=== PATIENT | male | born 1945 | race Caucasian/White ===

== ENCOUNTER 2018-07-14 03:58 | Inpatient (IN) | payer OTHER ==
[~2018-07-14] VITALS: Ht 172.7 cm; Wt 95.3 kg
[~2018-07-14 03:58] MED LIST: ASPIRIN EC81 M1 PO; ATORVASTATIN CA40 M1 PO; FERREX 150150 M1 PO; QUINAPRIL HCL20 M1 PO; TAMSULOSIN HCL0.4 M1
--- NOTE | 2018-07-14 09:57 | Operative Report ---
Operative/Inv Procedure Report Surgery Date: 07/14/18 Name of Procedure: Left total knee arthroplasty Pre-Operative Diagnosis: Left knee primary osteoarthritis Post-Operative Diagnosis: Same Estimated Blood Loss: less than 50ml Surgeon/Production Control Expediter: Ethel GLOVER,Alexei Burroughs Anesthesia: block Implants: Syeda triathlon total knee system-size 5 femur, size 5 tibia, 9 mm cruciate retaining polyethylene, 31 patella Drains: None Specimens: Femoral, tibial, patellar bone, remnants of medial lateral meniscal tissues Microbiology: Urine Tourniquet: 59 minutes Complications: None Condition: Stable Operative Indication: Patient is a 73-year-old man with gradually worsening knee symptoms grade he was diagnosed with end-stage osteoarthritis. Conservative measures did not provide any significant long-term relief. Due to ongoing symptoms that interfere with normal activities of daily living and failure of conservative measures, he wished to proceed with total knee arthroplasty. Risks benefits and expectations of the surgical procedure were discussed which included but were not limited to persistent knee pain, need for subsequent surgery, infection, DVT, injury to blood vessel or nerve and anesthesia risks. Operative/Procedure Note Note: Patient was brought to the operating room and transferred to the operating room table. Once under appropriate anesthesia the left lower extremity was prepped and draped in standard fashion. Preoperative IV antibiotics were given prophylactically. Standard anterior incision was made after the left lower extremity was elevated exsanguinated and tourniquet was inflated to 300 mm of pressure. Standard exposure was taken down to the medial retinaculum. A medial retinacular approach of the minimal extension to the quadricep tendon was used to enter the knee joint. Osteophytes were excised from all 3 compartments. Remnants of the medial and lateral meniscal tissues were excised. Portion of the fat pad was excised for proper visualization. Retractors were placed and the knee was flexed. Remnants of the ACL were excised.. Used a drill to enter the intramedullary canal for the intramedullary guide for the distal femoral cut. The cutting block was pinned in place for a 6 valgus cut. The appropriate thickness was removed and then the femur was sized to a size 5. Size 5 cuts were made with the standard block. Soft tissues were protected throughout the procedure with retractors. I then turned my attention to the tibia. I placed the external tibial alignment guide in place and pinned the cutting block for a neutral cut from medial to lateral and reproducing patient's posterior slope based on preoperative templating and intraoperative findings. Again soft tissues were protected medially laterally and posteriorly. The PCL was recessed prior to this cut. Soft tissue balancing was completed. I then did a trial reduction with a size 5 tibia size 5 femur and a 9 mm polyethylene. Soft tissues were balanced. Full extension. Excellent flexion stability and full flexion to gravity was confirmed. I then turned my attention to the patella. The patella was measured and the appropriate thickness was removed and then replaced with a size 31 patella. 3 lug holes were drilled and the knee was taken through range of motion with the trial polyethylene of the patellar component. Excellent patellofemoral tracking. I then removed all trial components. Was done after marking my rotation and drilling the 2 lug holes for the distal femur. I finished preparation of the tibia with the standard tibial punch for the size 5 tibia. Cement was being mixed on the back table as the knee surfaces were copiously irrigated. I also used the anterior chamfer bone to use as a plug for the distal femur to minimize postoperative hemarthrosis and postoperative knee swelling. Once the cement was ready was applied to the dry clean bony surfaces of the proximal tibia and the definitive size 5 tibial component was impacted in place. Excess cement was removed with curette. Cement was applied to dry clean bony surfaces of the distal femur and the definitive size 5 femoral component was impacted in place. The cruciate retaining trial polyethylene was inserted and the knee was taken out to full extension. Cement was applied to the dry clean bony surfaces of the patella. The size 31 patella was impacted in place and excess cement was removed with knife. Once the cement had hardened into the knee through range of motion. Small pieces of excess cement removed. I was satisfied with a 9 mm cruciate retaining polyethylene full extension excellent mid flexion stability and full flexion to gravity. Trial polyethylene was removed. Copious irrigation the tibial tray followed. The definitive size 9 mm cruciate retaining polyethylene was impacted in place for the size 5 tibia. The locking mechanism was confirmed. Again stability was confirmed as well as well as motion. Tourniquet was deflated. Hemostasis was obtained. After copious irrigation and copious irrigation followed every level of closure, the closure began with the retinacular and minimal extension of the quadricep tendon using #1 Vicryl suture. Subtenons tissue was closed with 2-0 Vicryl in 2 layers and skin was closed with a running 3-0 Vicryl suture with the knee in flexion. Appropriate dressings were applied and patient was awakened and taken to recovery room in good condition. No intraoperative complications. Blood loss was minimal Discharge Disposition: PACU
[2018-07-14 11:00] VITALS: BP 132/72
--- NOTE | 2018-07-14 11:50 | PN- Orthopedic ---
Subjective Subjective: 73 y/o male S/P left TKA doing well without complaints, tolerating POs Family present, all questions answered Objective Vital Signs and I&Os VSS afebrile Physical Exam: Patient is alert and oriented, comfortable VSS afebrile chest-CTA symmetric Heart -RRR without MRG Abd -soft without distention left - knee dressings CDI without drainage, calves soft feet warm, full sensation has returned Current Medications: Current Medications Sig/Elisa Start time Last Medication Dose Route Stop Time Status Admin Acetaminophen 650 MG ONCE 07/14 DC PO 07/14 2359 Apixaban 2.5 MG BID 07/15 900 AC PO Atorvastatin Calcium 40 MG 1700 07/14 170 AC PO Celecoxib 400 MG DAILY 07/15 900 AC PO Celecoxib 400 MG ONCE 07/14 DC PO 07/14 2359 Dexamethasone 20 MG ONCE 07/14 DC IV 07/14 235 Dextrose/Lactated 1,000 ML Q13H 07/14 111 AC Ringer's IV Docusate Sodium 100 MG BID PRN 07/14 800 AC PO Fentanyl Citrate 0 .STK-MED ONE 07/14 727 DC .ROUTE Gabapentin 300 MG ONCE 07/14 DC PO 07/14 235 Lisinopril 10 MG DAILY 07/14 900 AC PO Midazolam HCl 0 .STK-MED ONE 07/14 727 DC .ROUTE Midazolam HCl 0 .STK-MED ONE 07/14 726 DC .ROUTE Morphine Sulfate 2 MG Q3P PRN 07/14 111 AC IV Ondansetron HCl 4 MG Q6P PRN 07/14 111 AC IV Oxycodone HCl 10 MG ONCE 07/14 DC PO 07/14 2359 Oxycodone/ 1 TAB Q4P PRN 07/14 111 AC Acetaminophen PO Oxycodone/ 2 TAB Q4P PRN 07/14 111 AC Acetaminophen PO Polyethylene Glycol 17 GM DAILY NEEDED PRN 07/14 800 AC PO Scopolamine HBr 1 PAT ONCE 07/14 DC TOP 07/14 2359 Senna/Docusate Sodium 2 TAB AT BEDTIME NEED.. 07/14 111 AC PO Tamsulosin HCl 0.4 MG DAILY 07/15 900 AC PO Tranexamic Acid 0 .STK-MED ONE 07/14 918 DC IV Vancomycin HCl 1,500 MG 1900 07/14 1900 AC Sodium Chloride 250 ML IV 07/14 2030 Vancomycin HCl 1,500 MG ONCE 07/14 0000 CAN Sodium Chloride 500 ML IV 07/14 2359 Vancomycin HCl 1,500 MG ONCE 07/14 0000 DC Sodium Chloride 250 ML IV 07/14 2359 Assessment/Plan Assessment/Plan 73 y/o male postop Left TKA prior history of polio -rgiht upper extremity atrophy with intermittent bilateral lower extremity weakness at baseline start PT -He will not be able to ambulate with a walker, suggest cane He will need 3 day stay with rehab at ([facility]) DVT poph -eliquis advance diet as tolarated Core Measures Venous Thromboembolism VTE Risk Factors Surgery No Mechanical VTE Prophylaxis d/t N/A MechProphylax Ordered No VTE Pharm Prophylaxis d/t NA PharmProphylax ordered
--- NOTE | 2018-07-14 11:51 | Admission Core Measures ---
Acute Coronary Syndrome (CM) ACS Core Measures Acute Coronary Syndrome Diagnosis No Congestive Heart Failure (NEW) CHF Core Measures Congestive Heart Failure Diagnosis No Cerebrovascular Accident CVA Core Measures CVA/TIA Diagnosis No Venous Thromboembolism VTE Core Adrianna (View Protocol) VTE Risk Factors Surgery No Mechanical VTE Prophylaxis d/t N/A MechProphylax Ordered No VTE Pharm Prophylaxis d/t NA PharmProphylax ordered Problem List As ranked by this Provider includes Assessment & Plan 1. Primary osteoarthritis of left knee HOME MEDS Home Med List Apixaban (Eliquis) 2.5 MG TABLET 2.5 MG PO BID DVT prophalaxis Atorvastatin Calcium 40 MG TABLET 1 TAB PO DAILY cholesterol (Reported) Docusate Sodium (Colace) 100 MG CAPSULE 1 CAP PO DAILY PRN CONSTIPATION Iron Polysaccharide Complex (Ferrex 150) 150 MG IRON CAPSULE 1 CAP PO DAILY supplement (Reported) Oxycodone HCl/Acetaminophen (Percocet 5-325 MG Tablet) 5 MG-325 MG TABLET 1-2 TAB PO Q4-6 PRN PRN PAIN Quinapril HCl 20 MG TABLET 1 TAB PO DAILY HTN (Reported) Discontinued Medications Aspirin (Ecotrin*) 81 MG TABLET.DR 1 TAB PO DAILY cardiac (Reported) Discontinued reason: Changed to different med
--- NOTE | 2018-07-14 11:57 | Surgical Discharge Summary ---
Visit Information Visit Dates Admission Date: 07/14/18 Discharge Date: 07/16/18 History of Present Illness Chief Complaint: left knee pain, osteoarthritis Medical History Isolation History: Standard Surgical History Pertinent Surgical History: knee replacement (L) Review of Systems: Refer to H&P Hospital Course Course Attending Physician: Ethel GLOVER,Manjeet Primary Care Physician: Олег Owen MD Hospital Course: 73 y/o male underwent a left TKA on 07/14/2018. He tolarated the procedure well and was transferred to the surgical floor to begin his postoperative course. He was started on eliquis for DVT prophalaxis. He was seen by PT for WBAT to return to baseline. Throughout his hospital stay his VSS and he remained afebrile. On POD 2 he was discharged to ECF for continuation of rehab Allergies: Coded Allergies: atenolol (From TENORMIN) (Severe, RASH, SWELLING, NAUSEA, SOB 07/14/18) Significant Procedures: TKA Disposition Summary Disposition Principal Diagnosis: left knee osteoarthritis Additional Diagnosis: none Discharge Disposition: SNF Discharge Instructions General Discharge Information Code Status: Full Code Patient's Diet: regular Patient's Activity: return to baseline Follow-Up Instructions/Appts: 2 weeks Medications at Discharge Discharge Medications: Stop taking the following medications: Aspirin (Ecotrin*) 81 MG TABLET.DR ORAL DAILY Continue taking these medications: Atorvastatin Calcium (Atorvastatin Calcium) 40 MG TABLET 1 Tablet ORAL DAILY Comments: Last Taken:07/15/18 Time:5:44 PM Iron Polysaccharide Complex (Ferrex 150) 150 MG IRON CAPSULE 1 Capsule ORAL DAILY Comments: NOT GIVEN IN HOSPITAL Quinapril HCl (Quinapril HCl) 20 MG TABLET 1 Tablet ORAL DAILY Comments: Last Taken:07/16/18- LISINOPRIL GIVEN IN HOSP Time:8:36 AM Tamsulosin HCl (Tamsulosin HCl) 0.4 MG CAP.ER.24H Comments: Last Taken:07/16/18 Time:8:36 AM Start taking the following new medications: Apixaban (Eliquis) 2.5 MG TABLET 2.5 Milligram ORAL TWICE DAILY Qty = 60 No Refills Comments: Last Taken:07/16/18 Time:8:36 AM Oxycodone HCl/Acetaminophen (Percocet 5-325 MG Tablet) 5 MG-325 MG TABLET 1-2 Tablet ORAL EVERY 4-6 HOURS NEEDED as needed for PAIN Qty = 30 No Refills Comments: Last Taken:07/16/18 Time:1:15 PM Docusate Sodium (Colace) 100 MG CAPSULE 1 Capsule ORAL DAILY as needed for CONSTIPATION Qty = 7 No Refills Comments: Last Taken:07/16/18 Time:8:36 AM Copies To: Manjeet Davenport MD
[2018-07-14] MEDS ORDERED: ELIQUIS2.5 M1 PO (11:58)
--- NOTE | 2018-07-14 12:05 | Patient Discharge Instructions ---
Discharge Instructions General Discharge Information You were seen/treated for: left knee osteoarthritis You had these procedures: left total knee replacement Watch for these problems: fevers, chills, wound drainage, weakness Call Surgeon to remove: [place] Do not soak the wound: No Daily wet to dry dressings: No No bath, but you may shower: No Other wound care: keep incision clean and dry Special Instructions: dry dressing changes daily Diet Continue normal diet: Yes Activity Full Activity/No Limits: No Activity Self Limited: Yes Acute Coronary Syndrome Inclusion Criteria At DC or during hospital stay patient has or had the following: ACS DIAGNOSIS No Discharge Core Measures Meds if any: Prescribed or Continued at Discharge Meds if any: NOT Prescribed or Continued at Discharge Congestive Heart Failure Inclusion Criteria At DC or during hospital stay patient has or had the following: CHF DIAGNOSIS No Discharge Core Measures Meds if any: Prescribed or Continued at Discharge Meds if any: NOT Prescribed or Continued at Discharge Cerebrovascular accident Inclusion Criteria At DC or during hospital stay patient has or had the following: CVA/TIA Diagnosis No Discharge Core Measures Meds if any: Prescribed or Continued at Discharge Meds if any: NOT Prescribed or Continued at Discharge Venous thromboembolism Inclusion Criteria VTE Diagnosis No VTE Type NONE VTE Confirmed by (Test) NONE Discharge Core Measures - Per Current guidelines, there needs to be overlap - treatment for the first 5 days of Warfarin therapy. - If discharged on Warfarin prior to 5 days of - overlap therapy, the patient will need to be - assessed for post discharge needs including - *Post discharge parental anticoagulation - *Warfarin and/or parental anticoagulation education - *Follow up date to check INR post discharge At least 5 days overlap therapy as Inpatient No Meds if any: Prescribed or Continued at Discharge Note: Overlap Therapy is Warfarin and Anticoagulant Meds if any: NOT Prescribed or Continued at Discharge
[2018-07-14 15:14] VITALS: BP 152/86
[2018-07-14 15:54] VITALS: BP 137/75
[2018-07-14 17:37] VITALS: BP 127/64
[2018-07-14 19:20] VITALS: BP 132/64
[2018-07-14 21:02] VITALS: BP 126/68
[2018-07-15 00:59] VITALS: BP 126/85
[2018-07-15 06:43] VITALS: BP 127/79
[2018-07-15 08:21] LABS: ABSOLUTE BASOPHIL COUNT 0 /CUMM (0.0-0.2); ABSOLUTE EOSINOPHIL COUNT 0 /CUMM (0.0-0.7); ABSOLUTE GRANULOCYTE CT 11.3 /CUMM (1.4-6.5); ABSOLUTE LYMPH COUNT 0.9 /CUMM (1.2-3.4); ABSOLUTE MONOCYTE COUNT 0.9 /CUMM (0.10-0.60); BASOPHIL % 0 % (0.0-2.0); EOSINOPHIL % 0 % (0-5); GRANULOCYTE % 86.3 % (42.2-75.2); HEMATOCRIT 35.2 % (42-52); MEAN CORPUSCULAR HGB 32.8 PG (27.0-31.0); MEAN CORPUSCULAR HGB CONC 34.2 G/DL (33.0-37.0); MEAN CORPUSCULAR VOLUME 96.1 FL (80.0-94.0); MEAN PLATELET VOLUME 8.1 FL (7.4-10.4); PLATELET COUNT 206 /CUMM (130-400); RBC DISTRIBUTION WIDTH 12.4 % (11.5-14.5); RED BLOOD CELL CT 3.67 /CUMM (4.70-6.10)
--- NOTE | 2018-07-15 09:07 | PN- Orthopedic ---
See Addendum Subjective Subjective: Reports pain controlled. Out of bed to chair. No dizziness. No shortness of breath. No chest pains. Anticipates rehab placement in a few days. Objective Vital Signs and I&Os Vital Signs Date Time Temp Pulse Resp B/P B/P Pulse O2 O2 Flow FiO2 Mean Ox Delivery Rate 07/15 829 57 129/66 07/15 0828 57 129/66 07/15 0643 98.1 52 20 127/79 97 Room Air 07/15 0059 98.1 67 18 126/85 97 CPAP 07/14 2102 98.1 65 20 126/68 96 Room Air 07/14 1920 98.0 62 18 132/64 96 Room Air 07/14 1737 98.7 59 20 127/64 96 Room Air 07/14 1554 97.7 95 20 137/75 93 Room Air 07/14 1514 98.3 91 20 152/86 95 Room Air 07/14 1100 97.8 58 18 132/72 97 Room Air Intake & Output 07/15 1600 07/15 0000 07/14 1600 07/14 0807/14 0000 Intake Total 548 692 0458 Output Total 700 700 Balance 100 -280 1020 Intake, IV 600 300 300 Intake, Oral 200 120 720 Number 0 Bowel Movements Output, Urine 700 700 Patient 210 lb Weight Weight Reported by Patient Measurement Method Physical Exam: General - alert & oriented x 3. out of bed to chair. no acute distress. Lungs - clear bilaterally. no w/r/r. Cardiac - s1s2. reg. Abdomen - soft. nontender. Extremities - warm bilaterally. left knee dressing c/d/i. ice pack in place over knee. calves soft and nontender b/l. nvi. Current Medications: Current Medications Sig/Elisa Start time Last Medication Dose Route Stop Time Status Admin Acetaminophen 650 MG ONCE 07/14 0000 DC PO 07/14 2359 Apixaban 2.5 MG BID 07/15 900 AC 07/15 PO 08 Atorvastatin Calcium 40 MG 1700 07/14 1700 AC 07/14 PO 190 Celecoxib 400 MG DAILY 07/15 900 AC 07/15 PO 0829 Celecoxib 400 MG ONCE 07/14 0000 DC PO 07/14 235 Dexamethasone 20 MG ONCE 07/14 0000 DC IV 07/14 235 Dextrose/Lactated 1,000 ML Q13H 07/14 1115 DC 07/15 Ringer's IV 0034 Docusate Sodium 100 MG BID 07/15 2100 AC PO Docusate Sodium 100 MG BID PRN 07/14 08 AC PO 07/15 2059 Gabapentin 300 MG ONCE 07/14 DC PO 07/14 235 Influenza Virus 0 .STK-MED ONE 07/14 1953 DC Vaccine IM Influenza Virus 0.5 ML ONCE ONE 07/14 134 DC 07/14 Vaccine IM 07/14 Lisinopril 10 MG DAILY 07/14 09 AC 07/15 PO 0829 Morphine Sulfate 2 MG Q3P PRN 07/14 111 AC IV Ondansetron HCl 4 MG Q6P PRN 07/14 111 AC IV Oxycodone HCl 10 MG ONCE 07/14 DC PO 07/14 235 Oxycodone/ 1 TAB Q4P PRN 07/14 111 AC Acetaminophen PO Oxycodone/ 2 TAB Q4P PRN 07/14 111 AC 07/15 Acetaminophen PO 0530 Polyethylene Glycol 17 GM DAILY NEEDED PRN 07/14 08 AC PO Scopolamine HBr 1 PAT ONCE 07/14 DC TOP 07/14 235 Senna/Docusate Sodium 2 TAB AT BEDTIME NEED.. 07/14 111 AC PO Tamsulosin HCl 0.4 MG DAILY 07/15 900 AC 07/15 PO 0828 Vancomycin HCl 1,500 MG 1900 07/14 190 DC 07/14 Sodium Chloride 250 ML IV 07/14 2030 190 Vancomycin HCl 1,500 MG ONCE 07/14 DC Sodium Chloride 250 ML IV 07/14 2359 Results Last 48 Hours of Labs: Laboratory Tests 07/15 723 Chemistry Sodium (137 - 145 mmol/L) 138 Potassium (3.5 - 5.1 mmol/L) 4.5 Chloride (98 - 107 mmol/L) 107 Carbon Dioxide (22 - 30 mmol/L) 22 Anion Gap (5 - 16) 9 BUN (9 - 20 mg/dL) 13 Creatinine (0.7 - 1.2 mg/dL) 0.8 Estimated GFR (>60 ml/min) > 60 BUN/Creatinine Ratio (7 - 25 %) 16.3 Hematology CBC w Diff NO MAN DIFF REQ WBC (4.8 - 10.8 /CUMM) 13.1 H RBC (4.70 - 6.10 /CUMM) 3.67 L Hgb (14.0 - 18.0 G/DL) 12.0 L Hct (42 - 52 %) 35.2 L MCV (80.0 - 94.0 FL) 96.1 H MCH (27.0 - 31.0 PG) 32.8 H MCHC (33.0 - 37.0 G/DL) 34.2 RDW (11.5 - 14.5 %) 12.4 Plt Count (130 - 400 /CUMM) 206 MPV (7.4 - 10.4 FL) 8.1 Gran % (42.2 - 75.2 %) 86.3 H Lymphocytes % (20.5 - 51.1 %) 7.1 L Monocytes % (1.7 - 9.3 %) 6.6 Eosinophils % (0 - 5 %) 0 Basophils % (0.0 - 2.0 %) 0 Absolute Granulocytes (1.4 - 6.5 /CUMM) 11.3 H Absolute Lymphocytes (1.2 - 3.4 /CUMM) 0.9 L Absolute Monocytes (0.10 - 0.60 /CUMM) 0.9 H Absolute Eosinophils (0.0 - 0.7 /CUMM) 0 Absolute Basophils (0.0 - 0.2 /CUMM) 0 Assessment/Plan Assessment/Plan This 73 year old male with hx cad, htn, hld, hx polio affecting her right arm, now POD#1 s/p left total knee arthroplasty for primary osteoarthritis pain controlled with percocet tolerating diet. d/c iv fluids d/c doyle catheter PT eval f/u labs eliquis 2.5mg BID - dvt ppx bowel regime ordered dressing change POD#2 d/c planning for STR will d/w Core Measures Venous Thromboembolism VTE Risk Factors Surgery No Mechanical VTE Prophylaxis d/t N/A MechProphylax Ordered No VTE Pharm Prophylaxis d/t NA PharmProphylax ordered
[2018-07-15 09:11] LABS: WHITE BLOOD CELL COUNT 13.1 /CUMM (4.8-10.8)
[2018-07-15 14:25] VITALS: BP 121/69
[2018-07-15 21:07] VITALS: BP 98/70
[2018-07-16 06:17] VITALS: BP 140/60
--- NOTE | 2018-07-16 07:25 | PN- Student ---
See Addendum Phoebe Crowe 07/16/18 0649: Subjective Subjective: Pt sitting comfortably in chair this morning. Has no complaints, reports pain is well managed, tolerating diet well, and ambulating with assistance to the bathroom. Pt has passed flatus but no BM. Using incentive spirometer and compliant with PT Denies SOB, fever, chills, dizziness, chest pain, nausea, diarrhea, constipation , or feeling bloated Objective Objective: Laboratory Tests 07/16/18627: CBC w Diff Pending, WBC Pending, RBC Pending, Hgb Pending, Hct Pending, MCV Pending, MCH Pending, MCHC Pending, RDW Pending, Plt Count Pending, MPV Pending 07/15/18722: Anion Gap 9, Estimated GFR > 60, BUN/Creatinine Ratio 16.3, CBC w Diff NO MAN DIFF REQ, RBC 3.67 L, MCV 96.1 H, MCH 32.8 H, MCHC 34.2, RDW 12.4, MPV 8.1, Gran % 86.3 H, Lymphocytes % 7.1 L, Monocytes % 6.6, Eosinophils % 0, Basophils % 0, Absolute Granulocytes 11.3 H, Absolute Lymphocytes 0.9 L, Absolute Monocytes 0.9 H, Absolute Eosinophils 0, Absolute Basophils 0 Laboratory Tests 07/16 0723 Chemistry Sodium (137 - 145 mmol/L) 138 Potassium (3.5 - 5.1 mmol/L) 4.5 Chloride (98 - 107 mmol/L) 107 Carbon Dioxide (22 - 30 mmol/L) 22 Anion Gap (5 - 16) 9 BUN (9 - 20 mg/dL) 13 Creatinine (0.7 - 1.2 mg/dL) 0.8 Estimated GFR (>60 ml/min) > 60 BUN/Creatinine Ratio (7 - 25 %) 16.3 Hematology CBC w Diff Pending NO MAN DIFF REQ WBC (4.8 - 10.8 /CUMM) Pending 13.1 H RBC (4.70 - 6.10 /CUMM) Pending 3.67 L Hgb (14.0 - 18.0 G/DL) Pending 12.0 L Hct (42 - 52 %) Pending 35.2 L MCV (80.0 - 94.0 FL) Pending 96.1 H MCH (27.0 - 31.0 PG) Pending 32.8 H MCHC (33.0 - 37.0 G/DL) Pending 34.2 RDW (11.5 - 14.5 %) Pending 12.4 Plt Count (130 - 400 /CUMM) Pending 206 MPV (7.4 - 10.4 FL) Pending 8.1 Gran % (42.2 - 75.2 %) 86.3 H Lymphocytes % (20.5 - 51.1 %) 7.1 L Monocytes % (1.7 - 9.3 %) 6.6 Eosinophils % (0 - 5 %) 0 Basophils % (0.0 - 2.0 %) 0 Absolute Granulocytes (1.4 - 6.5 /CUMM) 11.3 H Absolute Lymphocytes (1.2 - 3.4 /CUMM) 0.9 L Absolute Monocytes (0.10 - 0.60 /CUMM) 0.9 H Absolute Eosinophils (0.0 - 0.7 /CUMM) 0 Absolute Basophils (0.0 - 0.2 /CUMM) 0 Vital Signs Date Time Temp Pulse Resp B/P B/P Pulse O2 O2 Flow FiO2 Mean Ox Delivery Rate 07/16 0617 97.7 60 18 140/60 94 Intake & Output 07/16 0800 Intake Total 250 Output Total 900 Balance -650 Intake, IV 10 Intake, Oral 240 Output, Urine 900 Physical exam: Gen: elderly male, conversant and sitting comfortably, NAD, AOx4 CV: sinus rhythm, S1 and S2 present but not crisp, 2/6 late-systolic murmur Resp: increased work of breath, vesicular b/l, no w/r/r Abd: Distended, NABS, no guarding, rebound or tenderness Ext: 4/5 motor, sensation grossly intact, +2 pulses b/l, ice pack on left knee. +1 pitting edema right leg. Left leg dressed, clean and intact. Assessment/Plan Assessment: 73yo male w/ PMHx of cad, htn, hld, and polio, POD#2 s/p left total knee arthroplasty for primary OA w/o complications or complaints Plan: F/U labs, WBC up yesterday to 13.1 post-op, vitals stable, no tmax Pain is well-controlled w/ Percocet Tolerating regular diet, passed flatus but no BM, denies constipation PT eval yesterday, cleared for d/c Eliquis 2.5mg BID - dvt ppx Dressing changed will d/w surgery Liyah Pittman 07/16/18 0729: Assessment/Plan Plan: 73yo M SP L TKA POD2. stable. dressing changed, incision is clean and dry with no signs of infection. doing well with PT using rolling walker. Agree with above. pain management- percocet prn dvt ppx- eliquis reg diet PT- WBAT with rolling walker FU AM labs encourage IS DC planning- home with HS vs possibly STR will discuss with attending
[2018-07-16 07:48] LABS: ABSOLUTE BASOPHIL COUNT 0 /CUMM (0.0-0.2); ABSOLUTE EOSINOPHIL COUNT 0.2 /CUMM (0.0-0.7); ABSOLUTE GRANULOCYTE CT 7.9 /CUMM (1.4-6.5); ABSOLUTE LYMPH COUNT 1.8 /CUMM (1.2-3.4); BASOPHIL % 0.3 % (0.0-2.0); EOSINOPHIL % 1.4 % (0-5); GRANULOCYTE % 72.5 % (42.2-75.2); HEMATOCRIT 33.2 % (42-52); MEAN CORPUSCULAR HGB 32.9 PG (27.0-31.0); MEAN CORPUSCULAR HGB CONC 34.3 G/DL (33.0-37.0); MEAN PLATELET VOLUME 8.1 FL (7.4-10.4); PLATELET COUNT 196 /CUMM (130-400); RED BLOOD CELL CT 3.46 /CUMM (4.70-6.10); WHITE BLOOD CELL COUNT 10.8 /CUMM (4.8-10.8)
--- NOTE | 2018-07-16 10:40 | RADIOLOGY REPORT ---
EXAMINATION: XR KNEE, LEFT CLINICAL INFORMATION: Status post left total knee arthroplasty. COMPARISON: Left knee 02/27/2014. TECHNIQUE: AP and crosstable lateral views of the left knee. FINDINGS: The left total knee arthroplasty appears well-seated in near-anatomic alignment. There may be a trace joint effusion. There is air in the joint and soft tissues. IMPRESSION: Intact appearing left total knee arthroplasty. Trace joint effusion. Expected postoperative changes.
[2018-07-16] MEDS ORDERED: COLACE100 M1 PO (12:18)
[2018-07-16] MEDS ORDERED: PERCOCET 5-3251 EACH PO (12:18)
[2018-07-16 13:41] VITALS: BP 128/70
== END 2018-07-16 13:58 | DRG 470 ==
LOC: SDA 03:58 → 2NB 03:58 → SDA 07:00 → ENRESERV 09:59 → ENTRNSPT 10:23 → EDTRNSPT 10:27 → EDTRNSPTSTS 10:27 → 2NB 10:48 → CMPTRNSPT 10:59 → ENPENDDIS 07-16 12:27 → ENTRNSPT 07-16 13:39 → EDTRNSPTSTS 07-16 13:54 → EDTRNSPT 07-16 13:54 → 2NB 07-16 13:58 → CMPTRNSPT 07-16 14:06
PROVIDERS: Physician Assistant; Physician Assistant Surgical
PROC: 3E0T3BZ Introduction of Anesthetic Agent into Peripheral Nerves and Plexi, Percutaneous Approach (ICD-10-PCS; principal; 2018-07-14)
PROC: 0SRD0JZ Replacement of Left Knee Joint with Synthetic Substitute, Open Approach (ICD-10-PCS; principal; 2018-07-14)
DX: M17.12 Unilateral primary osteoarthritis, left knee (principal); Z86.12 Personal history of poliomyelitis; G47.33 Obstructive sleep apnea (adult) (pediatric); I10 Essential (primary) hypertension; E78.5 Hyperlipidemia, unspecified; I35.0 Nonrheumatic aortic (valve) stenosis; I25.10 Atherosclerotic heart disease of native coronary artery without angina pectoris; Z95.1 Presence of aortocoronary bypass graft; E66.9 Obesity, unspecified; Z68.31 Body mass index [BMI] 31.0-31.9, adult; R53.1 Weakness
CPT/HCPCS: 2NBP; 36592; 73560-LT; 82436; 87086; 97110-GO; 97116-GO; 97161-GP; 97530-GO; C1713; C9290; J1100; J2405; J3370; J7040; Q2036